=== PATIENT | female | born 1980 | race Hispanic/Latino ===

== ENCOUNTER 2018-12-30 14:58 | Emergency (ER) | payer MEDICAID, SELFPAY ==
--- NOTE | 2018-12-30 16:21 | CT ---
EXAM: CT cervical spine PROVIDED CLINICAL HISTORY: Posterior neck pain for several months. History of injury. Associated headaches. TECHNIQUE: Contiguous axial CT images are obtained through the cervical spine from the skull base to the level o f the T1-2 level. Sagittal and coronal reformatted images are provided. COMPARISON: None FINDINGS: There is straightening of the normal cervical lordotic curvature. No fracture or subluxation is seen involving the cervical spine. There is a mild disc osteophyte complex seen at the C5-6 level which does narrow the ventral subarachnoid space. The prevertebral soft tissues demonstrate a normal appear ance. Visualized lung apices appear clear. IMPRESSION: No evidence for fracture or traumatic subluxation. Mild degenerative changes at the C5-6 level. Straightening of normal cervical lordotic curvature which may related to muscle spasm or positioning.
== END 2018-12-30 17:08 | disposition home or self-care (01) ==
LOC: ERS 14:58
DX: M54.2 Cervicalgia (principal); F17.210 Nicotine dependence, cigarettes, uncomplicated; Z71.6 Tobacco abuse counseling
CPT/HCPCS: 72125; 99406

== ENCOUNTER 2019-05-29 09:46 | Emergency (ER) | payer SELFPAY | END 2019-05-29 11:28 | disposition home or self-care (01) | LOC: ERS 09:46 | DX: R11.2 Nausea with vomiting, unspecified (principal); R19.7 Diarrhea, unspecified; F17.210 Nicotine dependence, cigarettes, uncomplicated | CPT/HCPCS: 99283 ==

== ENCOUNTER 2020-02-16 15:39 | Outpatient (CLI) | payer MEDICAID ==
--- NOTE | 2020-02-16 16:34 | MMO ---
Bilateral MAMMO Bilat Screen [facility]. CLINICAL HISTORY: Patient is 39 years old and is seen for screening. The patient has the following family history of breast cancer: mother, at age 45; maternal grandmother and paternal grandmother. The patient has no personal history of cancer. VIEWS: The views performed were: bilateral craniocaudal and bilateral mediolateral oblique. This study has been interpreted with the assistance of computer-aided detection. MAMMOGRAM FINDINGS: There are scattered fibroglandular densities. There are no suspicious masses, suspicious calcifications, or new areas of architectural distortion. IMPRESSION: THERE IS NO MAMMOGRAPHIC EVIDENCE OF MALIGNANCY. A ROUTINE FOLLOW-UP MAMMOGRAM IN 1 YEAR IS RECOMMENDED. ACR BI-RADS Category 1 - Negative MAMMOGRAPHY NOTE: 1. A negative mammogram report should not delay a biopsy if a dominant of clinically suspicious mass is present. 2. Approximately 10% to 15% of breast cancers are not detected by mammography. 3. Adenosis and dense breasts may obscure an underlying neoplasm. Reported by: URIEL VILLARREAL MD Electonically Signed: [id number]
== END 2020-02-16 15:40 | disposition home or self-care (01) ==
LOC: BICMAMMO 15:39
PROVIDERS: ATTEND Nurse Practitioner Women's Health
DX: Z12.31 Encounter for screening mammogram for malignant neoplasm of breast (principal); Z80.3 Family history of malignant neoplasm of breast
CPT/HCPCS: 77067

== ENCOUNTER 2022-06-06 12:43 | Emergency (ER) | payer MEDICAID, SELFPAY ==
[2022-06-06] MEDS ORDERED: Famotidine 20 MG TAB ONE ×3 (13:37→13:40)
[2022-06-06] MEDS ORDERED: methylPREDNISolone Sod Succ/PF 125 MG/2 ML VIAL ONE (13:38)
== END 2022-06-06 15:21 | disposition home or self-care (01) ==
LOC: ERS 12:43
DX: T78.40XA Allergy, unspecified, initial encounter (principal); F17.290 Nicotine dependence, other tobacco product, uncomplicated
CPT/HCPCS: 96374; J2930

== ENCOUNTER 2022-11-15 17:24 | Emergency (ER) | payer SELFPAY ==
[2022-11-15] MEDS ORDERED: HYDROcodone/Acetaminophen 5/325 mg Tablet ONE (18:40)
[2022-11-15] MEDS ORDERED: Lidocaine 1% PF 5 ML VIAL ONE (18:40)
[2022-11-15] MEDS ORDERED: Boostrix 0.5 ML (Tdap) VIAL (>/=7 yrs of age) ONE (18:40)
[2022-11-15] MEDS ORDERED: Bacitracin 1 PK ONE (19:35)
== END 2022-11-15 20:00 | disposition home or self-care (01) ==
LOC: ERS 17:24
DX: S61.212A Laceration without foreign body of right middle finger without damage to nail, initial encounter (principal); F17.290 Nicotine dependence, other tobacco product, uncomplicated; W20.8XXA Other cause of strike by thrown, projected or falling object, initial encounter; Z23 Encounter for immunization
CPT/HCPCS: 12002; 90471; 90715

== ENCOUNTER 2022-11-22 15:08 | Emergency (ER) | payer SELFPAY | END 2022-11-22 16:22 | disposition home or self-care (01) | LOC: ERS 15:08 | DX: S61.212D Laceration without foreign body of right middle finger without damage to nail, subsequent encounter (principal); W45.8XXA Other foreign body or object entering through skin, initial encounter | CPT/HCPCS: 99282 ==

== ENCOUNTER 2023-11-01 13:45 | Emergency (ER) | payer MEDICAID, SELFPAY ==
[2023-11-01] MEDS ORDERED: Ketorolac Tromethamine 30 MG (1 mL) VIAL ONE (15:06)
== END 2023-11-01 17:59 | disposition home or self-care (01) ==
LOC: ERS 13:45
DX: M25.522 Pain in left elbow (principal); M25.532 Pain in left wrist; F17.290 Nicotine dependence, other tobacco product, uncomplicated; W19.XXXA Unspecified fall, initial encounter; Z75.3 Unavailability and inaccessibility of health-care facilities
CPT/HCPCS: 96372; J1885

== ENCOUNTER 2024-04-24 14:13 | Outpatient (CLI) | payer OTHER, MEDICAID | END 2024-04-24 14:14 | disposition home or self-care (01) | LOC: BICMAMMO 14:13 | PROVIDERS: ATTEND Nurse Practitioner Women's Health | DX: N64.89 Other specified disorders of breast (principal) | CPT/HCPCS: G0279 ==

== ENCOUNTER 2025-06-07 16:27 | Emergency (ER) | payer MEDICAID, OTHER, SELFPAY ==
[2025-06-07 17:30] LABS: Bacteria/HPF None Seen HPF (None Seen); CAUTI Indications for Culture Pelvic or flank pain; Glucose, Urine (Dipstick) Normal (Negative); Leukocyte Negative Leu/uL (Negative); Protein, Urine (Dipstick) Negative (Neg-Trace); RBC/HPF 0-3 HPF (0-3); Specific Gravity, Urine 1.023 (1.002-1.036); WBC/HPF 0-3 HPF (0-3)
[2025-06-07 17:32] LABS: Urine Culture Reflex No No
[2025-06-07] MEDS ORDERED: Ketorolac Tromethamine 30 MG (1 mL) VIAL ONE (17:40)
[2025-06-07] MEDS ORDERED: predniSONE 20 MG TAB ONE (17:42)
[2025-06-07 19:06] LABS: #Basophils 0.03 10x3/uL (0.0-0.2); #Eosinophils 0.23 10x3/uL (0.0-0.7); #Monocytes 0.44 10x3/uL (0.11-0.59); #Neutrophils 3.92 10x3/uL (1.40-6.50); %Basophils 0.5 % (0.0-1.0); %Eosinophils 3.7 % (0.0-10.0); %Lymphocytes 25.4 % (21.0-51.0); %Monocytes 7.1 % (0.0-10.0); %Neutrophils 63.0 % (42.0-75.0); Hematocrit 36.4 % (36.0-47.0); Hemoglobin 11.3 g/dL (12.0-16.0); Mean Corpuscular Hemoglobin 27.3 pg (27.0-31.0); Mean Corpuscular Volume 87.9 fL (78.0-98.0); Platelet Count 245 10x3/uL (130-400); Red Blood Cell (RBC) Count 4.14 mill/uL (4.20-5.40); White Blood Cell (WBC) Count 6.22 10x3/uL (4.8-10.8)
[2025-06-07 19:26] LABS: ALT (SGPT) 21 U/L (Less than 34); AST (SGOT) 27 U/L (11-34); Albumin 4.1 g/dL (3.1-4.5); Alkaline Phosphatase 59 U/L (40-110); Anion Gap 11 mmol/L (10-20); BUN (Urea Nitrogen) 8 mg/dL (7.0-18.7); Bilirubin, Total 0.3 mg/dL (0.3-1.2); Calc. Creatinine Clearance 0 mL/min (70-130); Calcium 9.2 mg/dL (7.8-10.44); Carbon Dioxide 27 mmol/L (22-29); Chloride 105 mmol/L (98-107); Globulin 3.7 g/dL (2.4-3.5); Glucose 114 mg/dL (70-105); Potassium 3.9 mmol/L (3.5-5.1); Sodium 139 mmol/L (136-145)
== END 2025-06-07 19:51 | disposition home or self-care (01) ==
LOC: ERS 16:27
DX: M54.16 Radiculopathy, lumbar region (principal)
CPT/HCPCS: 80053; 81001; 83880; 85025; 96372; 99283; J1885; J7512